=== PATIENT | male | born 1930 | race Caucasian/White ===

== ENCOUNTER 2018-01-08 16:13 | Inpatient (IN) | payer BC, OTHER ==
--- NOTE | 2018-01-08 16:24 | PDOC ---
Rapid Medical Evaluation Chief Complaint: Pain, Acute Time Seen by Provider: 01/08/18 16:20 Medical Evaluation: 01/08/18 16:21 I have performed a brief in-person evaluation of this patient. The patient presents with a chief complaint of: right testicular pain since last night. States swelling and tenderness, with difficulty urinating Pertinent physical exam findings are NAD even and unlabored breathing no abdominal tenderness I have ordered the following: urinalysis, scrotum sonogram The patient will proceed to Ed for further evaluation
--- NOTE | 2018-01-08 16:56 | PDOC ---
History of Present Illness - General Chief Complaint: Pain, Acute Stated Complaint: HERNIA Time Seen by Provider: 01/08/18 16:20 - History of Present Illness Initial Comments: 87 year old male with PMH of HTN and BPH presenting with right sided testicular pain for the past day. States that he noticed a sudden onset right testicular pain and swelling last night right before bed that made it very difficult to sleep. He describes the pain as sharp, radiating up his groin and would intermittently worsen. Denies any previous episode of the same issues, fevers, chills, nausea, vomiting, diarrhea, constipation, or other symptoms. 01/08/18 17:14 Timing/Duration: unsure Past History - Past Medical History Allergies/Adverse Reactions: Allergies Allergy/AdvReac Type Severity Reaction Status Date / Time No Known Allergies Allergy Verified 01/08/18 16:21 Home Medications: Ambulatory Orders Lisinopril [Prinivil] 20 mg PO DAILY 01/08/18 Metoprolol Succinate [Toprol Xl -] 50 mg PO DAILY 01/08/18 Terazosin HCl [Hytrin] 2 mg PO HS 01/08/18 COPD: No Disorders: Yes HTN: Yes - Suicide/Smoking/Psychosocial Hx Smoking History: Unknown if ever smoked Review of Systems - Review of Systems Constitutional: No: Chills, Diaphoresis, Fever HEENTM: No: Eye Pain, Blurred Vision, Tearing, Double Vision, Cataracts Respiratory: No: Cough, Orthopnea, SOB with Exertion Cardiac (ROS): No: Chest Pain, Edema, Lightheadedness ABD/GI: No: Diarrhea, Nausea, Vomiting : Yes: Testicular Swelling, Testicular Pain. No: Burning, Dysuria, Discharge Musculoskeletal: No: Muscle Pain, Muscle Weakness Integumentary: No: Bruising, Erythema, Flushing, Lesions Neurological: No: Headache, Numbness, Paresthesia Psychiatric: No: Anxiety, Depression Hematologic/Lymphatic: No: Anemia, Blood Clots *Physical Exam - Vital Signs Last Vital Signs Temp Pulse Resp BP Pulse Ox 99.3 F 87 18 151/78 97 01/08/18 16:22 01/08/18 16:22 01/08/18 16:22 01/08/18 16:22 01/08/18 16:22 - Physical Exam General Appearance: Yes: Nourished, Appropriately Dressed. No: Apparent Distress HEENT: positive: EOMI, EVELIA, Normal ENT Inspection, Normal Voice Neck: positive: Trachea midline, Normal Thyroid, Supple. negative: Tender, Rigid Respiratory/Chest: positive: Lungs Clear, Normal Breath Sounds. negative: Chest Tender, Respiratory Distress, Accessory Muscle Use Cardiovascular: positive: Regular Rhythm, Regular Rate Gastrointestinal/Abdominal: positive: Normal Bowel Sounds, Flat, Soft. negative : Tender Male Genitalia: positive: testicular tenderness (R test tenderness), other ( Right testicle slightly swollen with transverse lie, elevation, and absent cremasteric reflex on the right side with left sided cremasteric reflex intact. Tendernedd along right inguinal canal with bowel sounds in that area as well.) . negative: normal genitalia, discharge, testicular mass Lymphatic: negative: Adenopathy, Tenderness Musculoskeletal: positive: Normal Inspection. negative: CVA Tenderness, Decreased Range of Motion Extremity: positive: Normal Capillary Refill, Normal Inspection, Normal Range of Motion. negative: Tender Integumentary: positive: Normal Color, Dry, Warm Neurologic: positive: Fully Oriented, Alert, Normal Mood/Affect, Normal Response , Motor Strength 5/5, Other (cremasteric reflex per section) ED Treatment Course - LABORATORY CBC & Chemistry Diagram: 01/08/18 18:00 01/08/18 18:40 Medical Decision Making - Medical Decision Making 87 year old with right testicular pain and inguinal pain for the past day originalylconcerning for testicular torsion given transverse lie of testicle and absent cremasteric reflex, however, with an elevated white count to 21. 01/08/18 18:[address] with IV/ PO contrast did not demonstrate any torsion or hernia but did again see the hypervascularity in the right hemiscrotum consistent with the ultrasound. All of this is consistent with epiydmitis which is further coroborated by UA with 500+ wbcs 3+ leukesterase and WBC of 21 with left shift. Patient given levaquin 500 IVPB and signed out to TOM Howell for admission under [facility]. 01/08/18 21:54 *DC/Admit/Observation/Transfer Diagnosis at time of Disposition: Testicular pain, Acute epididymitis UTI (urinary tract infection) Qualifiers: Urinary tract infection type: site unspecified Hematuria presence: without hematuria Qualified Code(s): N39.0 - Urinary tract infection, site not specified - Discharge Dispostion Condition at time of disposition: Stable Decision to Admit order: Yes - Referrals Referrals: Jameson Arreguin MD [Primary Care Provider] - - Patient Instructions - Post Discharge Activity
[2018-01-08 18:15] LABS: BASO % 0.4 % (0-2.0); EOS % 0.1 % (0-4.5); HEMATOCRIT 41.5 % (35.4-49); HEMOGLOBIN 14.1 GM/dL (11.7-16.9); LYMPH % 5.2 % (8-40); MCH 31.2 pg (25.7-33.7); MEAN CELL VOLUME 91.9 fl (80-96); MEAN PLT VOLUME 7.1 fl (7.5-11.1); MONO % 5.1 % (3.8-10.2); NEUT % 89.2 % (42.8-82.8); PLATELET COUNT 266 K/MM3 (134-434); RBC 4.51 M/mm3 (4.00-5.60); RDW 14.4 % (11.9-15.9); WHITE BLOOD COUNT 21.4 K/mm3 (4.0-10.0)
[2018-01-08 18:38] LABS: INR 1.11 (0.83-1.09); PROTHROMBIN TIME (PATIENT) 12.5 SEC (9.7-13.0)
[2018-01-08 19:33] LABS: ALK PHOS 90 U/L (45-117); ANION GAP 9 MMOL/L (8-16); BLOOD UREA NITROGEN 10 mg/dL (7-18); CALCIUM 9.1 mg/dL (8.5-10.1); CHLORIDE 100 mmol/L (98-107); CO2 23 mmol/L (21-32); CREATININE 0.8 mg/dL (0.55-1.3); GLUCOSE,RANDOM 112 mg/dL (74-106); POTASSIUM 4.7 mmol/L (3.5-5.1); SGOT/AST 11 U/L (15-37); SGPT/ALT 13 U/L (13-61); SODIUM 133 mmol/L (136-145); TOT PROT 5.9 g/dl (6.4-8.2)
--- NOTE | 2018-01-08 19:41 | PDOC ---
Attending Attestation - HPI HPI: 01/08/18 19:44 The patient is an 87 year old male with a past medical history of benign prostatic hyperplasia and hypertension who presents to the emergency department for evaluation of a 1 day history of sudden onset right sided testicular pain with associated swelling. The patient denies previous onset of similar symptoms, fevers, chills, nausea, vomiting, diarrhea, constipation, or other symptoms - Physicial Exam PE: Vitals: Triage Vital signs reviewed General Appearance: no acute distress, well nourished well developed, Head: Atraumatic, normocephalic Neck: Supple Chest Wall: Nontender Cardiac: Regular rate and rhythm, no murmurs, no rubs, no gallops, Lungs: Clear to auscultation bilateral, good air movement bilaterally, Abdomen: Soft, nondistended, nontender to palpation Testicular exam: (+)Right testicle very tender to palpation. Pain over the inguinal ring. Extremities: Full range of motion to all extremities, no cyanosis, clubbing, or edema Skin: Warm and dry, no rashes or lesions, no petechiae Psych: normal mood, normal affect - Medical Decision Making The patient is an 87 year old male with a past medical history of benign prostatic hyperplasia and hypertension who presents to the emergency department for evaluation of a 1 day history of sudden onset right sided testicular pain with associated swelling. Plan: CT abdomen and pelvis Labs Urinalysis Ultrasound of scrotum <Albert Barillas - Last Filed: 01/08/18 19:43> - Resident Resident Name: Colin White - ED Attending Attestation I have performed the following: I have examined & evaluated the patient, The case was reviewed & discussed with the resident, I agree w/resident's findings & plan, Exceptions are as noted - Medical Decision Making 01/08/18 23:56 Patient with right testicular pain since yesterday upon arrival to the emergency department stat ultrasound ordered Pain radiated to the abdomen no evidence of torsion on examination questionable epididymitis Laboratory analysis returned with an elevated leukocytosis WBC 21 Given this elevated WBC decision made to CT abdomen and pelvis to rule out other pathology or possible small inguinal hernia Reevaluation no evidence of hernia on examination. Case discussed with urology who will admit overnight for IV antibiotics Levaquin ordered for treatment of possible infected epididymitis Limits medicine for further management. <Tay Palacios - Last Filed: 01/08/18 23:57> Attestations - Attestations Documentation prepared by Albert Barillas, acting as medical reception for Tay Palacios MD. <Albert Barillas - Last Filed: 01/08/18 19:43>
[2018-01-08 19:55] LABS: URINE APPEARANCE CLOUDY; URINE BILIRUBIN NEGATIVE (<2.0 mg/dL); URINE COLOR YELLOW; URINE GLUCOSE (UA) NEGATIVE (NEGATIVE); URINE KETONE NEGATIVE (NEGATIVE); URINE NITRITE NEGATIVE (NEGATIVE); URINE PROTEIN NEGATIVE (NEGATIVE); URINE UROBILINOGEN NEGATIVE mg/dL (0.2-1.0)
[2018-01-08 19:56] LABS: URINE LEUK ESTERASE 3+ (NEGATIVE)
[2018-01-08 19:58] LABS: PLATELET ESTIMATE ADEQUATE
[2018-01-08 20:06] LABS: INR 1.17 (0.83-1.09); PROTHROMBIN TIME (PATIENT) 13.2 SEC (9.7-13.0)
[2018-01-08 20:12] LABS: URINE BACTERIA FEW /hpf (NONE SEEN)
[2018-01-08] MEDS ORDERED: ACETAMINOPHEN 1000 MG/100 ML VIAL (NON FORMULARY) IVPB ONE (22:02)
[2018-01-08] MEDS ORDERED: SODIUM CHLORIDE 1,000 ML IV SCH (22:15)
--- NOTE | 2018-01-08 23:20 | PDOC ---
*Physical Exam - Vital Signs Last Vital Signs Temp Pulse Resp BP Pulse Ox 100.1 F H 89 18 139/70 99 01/08/18 19:56 01/08/18 19:56 01/08/18 19:56 01/08/18 19:56 01/08/18 19:56 - Physical Exam Comments: Spoke to Dr. Serrano and someone from the urology service will see her tomorrow. 01/08/18 23:16 ED Treatment Course - LABORATORY CBC & Chemistry Diagram: 01/08/18 18:00 01/08/18 18:40 - ADDITIONAL ORDERS Additional order review: Laboratory Results 01/08/18 01/08/18 01/08/18 19:27 18:40 18:40 PT with INR 13.20 H INR 1.17 H Sodium Potassium Chloride Carbon Dioxide Anion Gap BUN Creatinine Creat Clearance w eGFR Random Glucose Lactic Acid Calcium Total Bilirubin AST ALT Alkaline Phosphatase Total Protein Albumin Urine Color Yellow Urine Appearance Cloudy Urine pH 7.0 Ur Specific [place] 1.012 Urine Protein Negative Urine Glucose (UA) Negative Urine Ketones Negative Urine Blood Negative Urine Nitrite Negative Urine Bilirubin Negative Urine Urobilinogen Negative Ur Leukocyte Esterase 3+ H Urine WBC (Auto) 557 Urine RBC (Auto) 19 Urine Bacteria Few Blood Type A POSITIVE Antibody Screen Negative 01/08/18 01/08/18 01/08/18 18:40 18:40 18:00 PT with INR INR Sodium 133 L Potassium 4.7 Chloride 100 Carbon Dioxide 23 Anion Gap 9 BUN 10 Creatinine 0.8 Creat Clearance w eGFR > 60 Random Glucose 112 H Lactic Acid 1.2 Calcium 9.1 Total Bilirubin 1.0 AST 11 L ALT 13 Alkaline Phosphatase 90 Total Protein 5.9 L Albumin 3.0 L Urine Color Urine Appearance Urine pH Ur Specific [place] Urine Protein Urine Glucose (UA) Urine Ketones Urine Blood Urine Nitrite Urine Bilirubin Urine Urobilinogen Ur Leukocyte Esterase Urine WBC (Auto) Urine RBC (Auto) Urine Bacteria Blood Type Cancelled Antibody Screen Cancelled 01/08/18 01/08/18 18:00 18:00 PT with INR 12.50 INR 1.11 H Sodium Cancelled Potassium Cancelled Chloride Cancelled Carbon Dioxide Cancelled Anion Gap Cancelled BUN Cancelled Creatinine Cancelled Creat Clearance w eGFR Cancelled Random Glucose Cancelled Lactic Acid Calcium Cancelled Total Bilirubin Cancelled AST Cancelled ALT Cancelled Alkaline Phosphatase Cancelled Total Protein Cancelled Albumin Cancelled Urine Color Urine Appearance Urine pH Ur Specific [place] Urine Protein Urine Glucose (UA) Urine Ketones Urine Blood Urine Nitrite Urine Bilirubin Urine Urobilinogen Ur Leukocyte Esterase Urine WBC (Auto) Urine RBC (Auto) Urine Bacteria Blood Type Antibody Screen 01/08/18 18:00 RBC 4.51 MCV 91.9 MCHC 34.0 RDW 14.4 MPV 7.1 L Neutrophils % 89.2 H Lymphocytes % 5.2 L Monocytes % 5.1 Eosinophils % 0.1 Basophils % 0.4 - RADIOLOGY Radiology Studies Ordered: Category Date Time Status ABDOMEN & PELVIS CT WITH CONTR [CT] Stat CT Scan 01/08/18 19:06 Completed - Medications Given in the ED: ED Medications Discontinued Medications Generic Name Dose Route Start Last Admin Trade Name Freq PRN Reason Stop Dose Admin Levofloxacin 500 mg in 100 mls @ 100 mls/hr 01/08/18 20:15 01/08/18 22:02 Levaquin 500 Mg Premixed Ivpb - IVPB 01/08/18 21:14 100 mls/hr ONCE ONE Administration Protocol *DC/Admit/Observation/Transfer Diagnosis at time of Disposition: Testicular pain, Acute epididymitis UTI (urinary tract infection) Qualifiers: Urinary tract infection type: site unspecified Hematuria presence: without hematuria Qualified Code(s): N39.0 - Urinary tract infection, site not specified - Discharge Dispostion Condition at time of disposition: Stable - Referrals - Patient Instructions - Post Discharge Activity
[2018-01-08] MEDS ORDERED: ACETAMINOPHEN INJECTION 100 ML IVPB ONE (23:22)
--- NOTE | 2018-01-09 04:28 | HP ---
CHIEF COMPLAINT: Right Testicular Pain and Swelling PCP: Dr. Arreguin HISTORY OF PRESENT ILLNESS: This is a 87 y/o man with a PMHx of HTN, BPH. Who presents to the ED with right testicular pain and swelling since Friday afternoon. Patient reports while sitting he felt a sharp pain and noted swelling to his testicle. Patient deneis fever, chills, cough, SOB, CP, AP, N/V/D, constipation, melena, hematuria, dysuria. ER course was notable for: (1) T Max 100.1 (2) WBC 12.1 (3) Testicular US- no testicular torsion, right scrotal mass. Bilateral hydrocele (4) CTAP- cholelithiais, prostatic enlargement, hypervascularity and hydrocele within the right hemiscrotum, no acute pathology within the abdomen or pelvis Recent Travel: None PAST MEDICAL HISTORY: HTN BPH PAST SURGICAL HISTORY: Social History: Smoking: Former Alcohol: Wine, occasionally Drugs: Denies current use Lives with son, independent Family History: Non-contributory Allergies No Known Allergies Allergy (Verified 01/08/18 16:21) HOME MEDICATIONS: Home Medications Medication Instructions Recorded Lisinopril [Prinivil] 20 mg PO DAILY 01/08/18 Metoprolol Succinate [Toprol Xl -] 50 mg PO DAILY 01/08/18 Terazosin HCl [Hytrin] 2 mg PO HS 01/08/18 REVIEW OF SYSTEMS CONSTITUTIONAL: Absent: fever, chills, diaphoresis, generalized weakness, malaise, loss of appetite, weight change HEENT: Absent: rhinorrhea, nasal congestion, throat pain, throat swelling, difficulty swallowing, mouth swelling, ear pain, eye pain, visual changes CARDIOVASCULAR: Absent: chest pain, syncope, palpitations, irregular heart rate, lightheadedness , peripheral edema RESPIRATORY: Absent: cough, shortness of breath, dyspnea with exertion, orthopnea, wheezing, stridor, hemoptysis GASTROINTESTINAL: Absent: abdominal pain, abdominal distension, nausea, vomiting, diarrhea, constipation, melena, hematochezia GENITOURINARY: R-testicular pain. swelling Absent: dysuria, frequency, urgency, hesitancy, hematuria, flank pain, genital pain MUSCULOSKELETAL: Absent: myalgia, arthralgia, joint swelling, back pain, neck pain SKIN: redness to right scrotum Absent: rash, itching, pallor HEMATOLOGIC/IMMUNOLOGIC: Absent: easy bleeding, easy bruising, lymphadenopathy, frequent infections ENDOCRINE: Absent: unexplained weight gain, unexplained weight loss, heat intolerance, cold intolerance NEUROLOGIC: Absent: headache, focal weakness or paresthesias, dizziness, unsteady gait, seizure, mental status changes, bladder or bowel incontinence PSYCHIATRIC: Absent: anxiety, depression, suicidal or homicidal ideation, hallucinations. PHYSICAL EXAMINATION Vital Signs - 24 hr 01/08/18 01/08/18 01/09/18 16:22 19:56 03:41 Temperature 99.3 F 100.1 F H 97.9 F Pulse Rate 87 Pulse Rate [ 89 70 Apical] Respiratory 18 18 16 Rate Blood Pressure 151/78 Blood Pressure 139/70 113/89 [Left Arm] O2 Sat by Pulse 97 99 98 Oximetry (%) GENERAL: Awake, alert, and fully oriented, in no acute distress. HEAD: Normal with no signs of trauma. EYES: Pupils equal, round and reactive to light, extraocular movements intact, sclera anicteric, conjunctiva clear. No lid lag. EARS, NOSE, THROAT: Ears normal, nares patent, oropharynx clear without exudates. Moist mucous membranes. NECK: Normal range of motion, supple without lymphadenopathy, JVD, or masses. LUNGS: Breath sounds equal, clear to auscultation bilaterally. No wheezes, and no crackles. No accessory muscle use. HEART: Regular rate and rhythm, normal S1 and S2 without murmur, rub or gallop. ABDOMEN: Soft, nontender, not distended, normoactive bowel sounds, no guarding, no rebound, no masses. No hepatomegaly or splenomegaly. GENITOURINARY: +erythema, swelling, mass to R- scrotum MUSCULOSKELETAL: Normal range of motion at all joints. No bony deformities or tenderness. No CVA tenderness. UPPER EXTREMITIES: 2+ pulses, warm, well-perfused. No cyanosis. No clubbing. No peripheral edema. LOWER EXTREMITIES: 2+ pulses, warm, well-perfused. No calf tenderness. No peripheral edema. NEUROLOGICAL: Cranial nerves II-XII intact. Normal speech. Gait not observed. PSYCHIATRIC: Cooperative. Good eye contact. Appropriate mood and affect. SKIN: Warm, dry, normal turgor, no rashes or lesions noted, normal capillary refill. Laboratory Results - last 24 hr 01/08/18 01/08/1818 18:00 18:00 18:00 WBC 21.4 H RBC 4.51 Hgb 14.1 Hct 41.5 MCV 91.9 MCH 31.2 MCHC 34.0 RDW 14.4 Plt Count 266 MPV 7.1 L Absolute Neuts (auto) 19.1 H Total Counted 100 Neutrophils % 89.2 H Neutrophils % (Manual) 90.0 H Lymphocytes % 5.2 L Lymphocytes % (Manual) 5.0 L Monocytes % 5.1 Monocytes % (Manual) 5 Eosinophils % 0.1 Basophils % 0.4 Nucleated RBC % 0 Platelet Estimate Adequate Platelet Comment Large platelets PT with INR 12.50 INR 1.11 H Sodium Cancelled Potassium Cancelled Chloride Cancelled Carbon Dioxide Cancelled Anion Gap Cancelled BUN Cancelled Creatinine Cancelled Creat Clearance w eGFR Cancelled Random Glucose Cancelled Lactic Acid Calcium Cancelled Total Bilirubin Cancelled AST Cancelled ALT Cancelled Alkaline Phosphatase Cancelled Total Protein Cancelled Albumin Cancelled Urine Color Urine Appearance Urine pH Ur Specific [place] Urine Protein Urine Glucose (UA) Urine Ketones Urine Blood Urine Nitrite Urine Bilirubin Urine Urobilinogen Ur Leukocyte Esterase Urine WBC (Auto) Urine RBC (Auto) Urine Bacteria Blood Type Antibody Screen 01/08/18 01/08/18 01/08/18 18:00 18:40 18:40 WBC RBC Hgb Hct MCV MCH MCHC RDW Plt Count MPV Absolute Neuts (auto) Total Counted Neutrophils % Neutrophils % (Manual) Lymphocytes % Lymphocytes % (Manual) Monocytes % Monocytes % (Manual) Eosinophils % Basophils % Nucleated RBC % Platelet Estimate Platelet Comment PT with INR INR Sodium 133 L Potassium 4.7 Chloride 100 Carbon Dioxide 23 Anion Gap 9 BUN 10 Creatinine 0.8 Creat Clearance w eGFR > 60 Random Glucose 112 H Lactic Acid 1.2 Calcium 9.1 Total Bilirubin 1.0 AST 11 L ALT 13 Alkaline Phosphatase 90 Total Protein 5.9 L Albumin 3.0 L Urine Color Urine Appearance Urine pH Ur Specific [place] Urine Protein Urine Glucose (UA) Urine Ketones Urine Blood Urine Nitrite Urine Bilirubin Urine Urobilinogen Ur Leukocyte Esterase Urine WBC (Auto) Urine RBC (Auto) Urine Bacteria Blood Type Cancelled Antibody Screen Cancelled 01/08/18 01/08/18 01/08/18 18:40 18:40 19:27 WBC RBC Hgb Hct MCV MCH MCHC RDW Plt Count MPV Absolute Neuts (auto) Total Counted Neutrophils % Neutrophils % (Manual) Lymphocytes % Lymphocytes % (Manual) Monocytes % Monocytes % (Manual) Eosinophils % Basophils % Nucleated RBC % Platelet Estimate Platelet Comment PT with INR 13.20 H INR 1.17 H Sodium Potassium Chloride Carbon Dioxide Anion Gap BUN Creatinine Creat Clearance w eGFR Random Glucose Lactic Acid Calcium Total Bilirubin AST ALT Alkaline Phosphatase Total Protein Albumin Urine Color Yellow Urine Appearance Cloudy Urine pH 7.0 Ur Specific [place] 1.012 Urine Protein Negative Urine Glucose (UA) Negative Urine Ketones Negative Urine Blood Negative Urine Nitrite Negative Urine Bilirubin Negative Urine Urobilinogen Negative Ur Leukocyte Esterase 3+ H Urine WBC (Auto) 557 Urine RBC (Auto) 19 Urine Bacteria Few Blood Type A POSITIVE Antibody Screen Negative ASSESSMENT/PLAN: 87 y/o man PMHx of BPH, HTN. Placed on Observation for Acute Epididymitis, R- Testicular Pain, UTI for further evaluation of their emergent condition. FEN: NS@75ml/hr Replete lytes prn NPO DVT ppx OOB SCDs Heparin SQ Code Status: Full Code Dispo: Observation Problem List - Problem (1) Acute epididymitis Assessment/Plan: - Testicular US- scrotal mass heterogenous ad hypervascular - CTAP- cholelithiasis, prostatic enlargement, hypervascularity and hydrocele within the right hemiscrotum, no acute pathology within the abdomen or pelvis - Urine culture-pending - GC Culture-pending - Blood Culture-pending - WBC 21.4 - T Max 100.1 - + UTI - Levaquin given in ED, continue - Consult for Urology - IVF - Tylenol IV prn - Monitor vitals Code(s): N45.1 - EPIDIDYMITIS (2) Testicular pain Assessment/Plan: - r/o Testicular Torsion vs Epididymitis - Testicular US- no evidence of testicular torsion. scrotal mass medial to the right testicle ?etiology. the mass is heterogenous and hypervascular could be related to the epididymis - Appreciate Urology consult - Appreciate Surgical consult secondary to scrotal mass - Continue IVF fluids - Tylenol IV prn pain - Scrotal support - Repeat CBC, BMP - Monitor vitals Code(s): N50.819 - TESTICULAR PAIN, UNSPECIFIED (3) UTI (urinary tract infection) Assessment/Plan: - Likely secondary to epididymitis - UA- +3 leukocyte esterase, WBC 357 - Urine Culture-pending - Levaquin given in ED will continue - Monitor CBC - Monitor vitals Code(s): N39.0 - URINARY TRACT INFECTION, SITE NOT SPECIFIED Qualifiers: Urinary tract infection type: site unspecified Hematuria presence: without hematuria Qualified Code(s): N39.0 - Urinary tract infection, site not specified (4) BPH (benign prostatic hyperplasia) Assessment/Plan: - stable - Continue Hytrin Code(s): N40.0 - BENIGN PROSTATIC HYPERPLASIA WITHOUT LOWER URINRY TRACT SYMP (5) HTN (hypertension) Assessment/Plan: - stable - Monitor BP - Continue Lisinopril, Metoprolol with parameters - Monitor renal function Code(s): I10 - ESSENTIAL (PRIMARY) HYPERTENSION Visit type - Emergency Visit Emergency Visit: Yes ED Registration Date: 01/08/18 Care time: The patient presented to the Emergency Department on the above date and was hospitalized for further evaluation of their emergent condition. - New Patient This patient is new to me today: Yes Date on this admission: 01/09/18 - Critical Care Critical Care patient: No Hospitalist Screening - Colonoscopy Questionnaire Colonoscopy Questionnaire: Colonoscopy Questionnaire - Patient: 50 - 75 years old and never had a screening colonoscopy: No History of colon or rectal polyps, or CA: No History of IBD, Crohn's disease or UC: No History of abdominal radiation therapy as a child: No - Relative: 1 with colon or rectal CA, or polyps at age 60 or younger: No Colon or rectal CA diagnosed at age 45 or younger: No Multiple relatives with colon or rectal CA: No - Outcome: Screening Result: Negative Screen
[2018-01-09] MEDS: SODIUM CHLORIDE 1,000 ML IV SCH ×2 (04:50→17:07)
[2018-01-09 07:15] LABS: BASO % 0.1 % (0-2.0); EOS % 0.2 % (0-4.5); HEMATOCRIT 36.3 % (35.4-49); HEMOGLOBIN 12.4 GM/dL (11.7-16.9); LYMPH % 10.4 % (8-40); MCH 31.1 pg (25.7-33.7); MCHC 34.1 g/dl (32.0-35.9); MEAN PLT VOLUME 7.3 fl (7.5-11.1); MONO % 5.5 % (3.8-10.2); NEUT % 83.8 % (42.8-82.8); PLATELET COUNT 214 K/MM3 (134-434); RBC 3.99 M/mm3 (4.00-5.60); RDW 14.3 % (11.9-15.9)
[2018-01-09 07:48] LABS: ANION GAP 9 MMOL/L (8-16); BLOOD UREA NITROGEN 9 mg/dL (7-18); CALCIUM 8.3 mg/dL (8.5-10.1); CHLORIDE 101 mmol/L (98-107); CO2 24 mmol/L (21-32); CREATININE 0.7 mg/dL (0.55-1.3); GLUCOSE,RANDOM 90 mg/dL (74-106); POTASSIUM 4.1 mmol/L (3.5-5.1); SODIUM 133 mmol/L (136-145)
--- NOTE | 2018-01-09 09:40 | CON.GU ---
Consult Consult Specialty:: Referred by:: ED Reason for Consultation:: testicular swelling - History of Present Illness Chief Complaint: testicular swelling History of Present Illness: 87 year old male with acute and painful right testicular swelling. No prior history. CT and US consistent with epidydimits and hydrocele. He is currently feeling better without pain. No urinary complaints. Elevated WBC noted. - History Source History Provided By: Patient Limitations to Obtaining History: No Limitations - Past Medical History Renal/: No: BPH - Smoking History Smoking history: Unknown if ever smoked Home Medications - Allergies Allergies/Adverse Reactions: Allergies Allergy/AdvReac Type Severity Reaction Status Date / Time No Known Allergies Allergy Verified 01/08/18 16:21 - Home Medications Home Medications: Ambulatory Orders Lisinopril [Prinivil] 20 mg PO DAILY 01/08/18 Metoprolol Succinate [Toprol Xl -] 50 mg PO DAILY 01/08/18 Terazosin HCl [Hytrin] 2 mg PO HS 01/08/18 Review of Systems - Review of Systems Constitutional: denies: Fever Genitourinary: reports: Testicular Mass, Testicular Pain, Testicular Swelling Physical Exam- Vital Signs: Vital Signs Temperature 97.8 F 01/09/18 07:07 Pulse Rate 74 01/09/18 07:07 Respiratory Rate 18 01/09/18 07:07 Blood Pressure 115/56 01/09/18 07:07 O2 Sat by Pulse Oximetry (%) 97 01/09/18 07:07 Constitutional: Yes: Well Nourished, No Distress, Calm Cardiovascular: Yes: WNL, Regular Rate and Rhythm Respiratory: Yes: WNL, Regular, CTA Bilaterally Renal/: No: Bladder Distention, CVA Tenderness - Left, CVA Tenderness - Right , [place] Present Testicles: Yes: Other (non tender. no masses appreciated. small bilateral hydroceles.) Scrotum: Yes: Hydrocele Labs: CBC, BMP 01/09/18 06:30 01/09/18 06:30 Imaging - Results Cat Scan: Report Reviewed Ultrasound: Report Reviewed Problem List - Problems (1) Acute epididymitis Assessment/Plan: no surgical intervention indicated. antibiotics,. scrotal elevation and ice packs to scrotum as needed. Code(s): N45.1 - EPIDIDYMITIS (2) Testicular pain Code(s): N50.819 - TESTICULAR PAIN, UNSPECIFIED
[2018-01-09] MEDS: LISINOPRIL 20 MG TABLET (FP) PO SCH (10:13)
--- NOTE | 2018-01-09 10:52 | PN ---
Progress Note, Physician Chief Complaint: Pt lying in stretcher in no acute distress. reports feeling better. c/o pain/ swelling of r testicle. denies chest pain, sob, n/v/d - Current Medication List Current Medications: Active Medications Sodium Chloride (Normal Saline -) 1,000 mls @ 75 mls/hr IV ASDIR COUNT INCLUDES THE [facility] Last Admin: 01/09/18 04:50 Dose: 75 mls/hr Levofloxacin (Levaquin 500 Mg Premixed Ivpb -) 500 mg in 100 mls @ 100 mls/hr IVPB DAILY COUNT INCLUDES [facility]; Protocol Last Admin: 01/09/18 10:13 Dose: 100 mls/hr Lisinopril (Prinivil) 20 mg PO DAILY COUNT INCLUDES [facility] Last Admin: 01/09/18 10:13 Dose: 20 mg Metoprolol Succinate (Toprol Xl -) 50 mg PO DAILY COUNT INCLUDES [facility] Last Admin: 01/09/18 10:13 Dose: 50 mg Terazosin HCl (Hytrin -) 2 mg PO HS COUNT INCLUDES THE [facility] - Objective Vital Signs: Vital Signs Temperature 97.8 F 01/09/18 07:07 Pulse Rate 74 01/09/18 07:07 Respiratory Rate 18 01/09/18 07:07 Blood Pressure 115/56 01/09/18 07:07 O2 Sat by Pulse Oximetry (%) 97 01/09/18 07:07 Constitutional: Yes: Well Nourished, No Distress, Calm Cardiovascular: Yes: WNL, Regular Rate and Rhythm Respiratory: Yes: WNL, Regular, CTA Bilaterally. No: Accessory Muscle Use, Rhonchi, SOB, Tachypnea, Wheezes Gastrointestinal: Yes: WNL, Normal Bowel Sounds, Soft. No: Distention, Tenderness Genitourinary: Yes: Scrotal Edema (right, erythema/tender) Musculoskeletal: Yes: WNL Neurological: Yes: WNL, Alert, Oriented Psychiatric: Yes: WNL, Alert, Oriented Labs: CBC, BMP 01/09/18 06:30 01/09/18 06:30 INR, PTT INR 1.17 (0.83-1.09) H 01/08/18 18:40 Problem List - Problems (1) Acute epididymitis Assessment/Plan: Abd CT/scrotal US suggestive of epididymitis/hydrocele testicular torsion ruled out +fever, [id number], right scrotal/testicular swelling/erythema/tenderness levofloxacin iv day 2 GC culture pending, blood cultures ordered scrotal support/elevate/ice pack urology following Code(s): N45.1 - EPIDIDYMITIS (2) UTI (urinary tract infection) Assessment/Plan: pt c/o mild burning/discomfort w/ urination UA+, UC pending levaquin iv await culture Code(s): N39.0 - URINARY TRACT INFECTION, SITE NOT SPECIFIED Qualifiers: Urinary tract infection type: site unspecified Hematuria presence: without hematuria Qualified Code(s): N39.0 - Urinary tract infection, site not specified (3) HTN (hypertension) Assessment/Plan: controlled continue home regimen Code(s): I10 - ESSENTIAL (PRIMARY) HYPERTENSION Qualifiers: Hypertension type: essential hypertension Qualified Code(s): I10 - Essential (primary) hypertension (4) Leukocytosis Assessment/Plan: as above improving Code(s): D72.829 - ELEVATED WHITE BLOOD CELL COUNT, UNSPECIFIED
[2018-01-09 16:13] VITALS: BMI 23.8
[2018-01-09] MEDS ORDERED: PT OWN MED DRAWER 7, Y5N ONE (21:22)
[2018-01-09] MEDS ORDERED: ONDANSETRON 4 MG TABLET PO PRN (22:51)
[2018-01-09] MEDS: TERAZOSIN HCL 1 MG CAPSULE PO SCH (22:58)
[2018-01-09] MEDS: MAG HYDROX/AL HYDROX/SIMETH 30 ML UNIT-DOSE CUP PO PRN (22:59)
[2018-01-10 08:07] LABS: BASO % 0.3 % (0-2.0); EOS % 0.5 % (0-4.5); HEMOGLOBIN 11.7 GM/dL (11.7-16.9); LYMPH % 9.4 % (8-40); MCH 30.5 pg (25.7-33.7); MCHC 33.4 g/dl (32.0-35.9); MEAN CELL VOLUME 91.3 fl (80-96); MEAN PLT VOLUME 7.6 fl (7.5-11.1); MONO % 6.4 % (3.8-10.2); NEUT % 83.4 % (42.8-82.8); PLATELET COUNT 228 K/MM3 (134-434); RBC 3.83 M/mm3 (4.00-5.60); RDW 14.4 % (11.9-15.9); WHITE BLOOD COUNT 16.1 K/mm3 (4.0-10.0)
[2018-01-10 08:48] LABS: ALBUMIN 2.3 g/dl (3.4-5.0); ALK PHOS 79 U/L (45-117); ANION GAP 9 MMOL/L (8-16); BLOOD UREA NITROGEN 10 mg/dL (7-18); CALCIUM 8.5 mg/dL (8.5-10.1); CHLORIDE 100 mmol/L (98-107); CO2 25 mmol/L (21-32); CREATININE 0.6 mg/dL (0.55-1.3); GLUCOSE,RANDOM 88 mg/dL (74-106); SGOT/AST 12 U/L (15-37); SGPT/ALT 12 U/L (13-61); SODIUM 134 mmol/L (136-145); TOT PROT 4.8 g/dl (6.4-8.2)
[2018-01-10] MEDS: LISINOPRIL 20 MG TABLET (FP) PO SCH (10:34)
--- NOTE | 2018-01-10 12:59 | PN ---
Progress Note, Physician Chief Complaint: Rt sided testicular pain - Current Medication List Current Medications: Active Medications Al Hydroxide/Mg Hydroxide (Mylanta Oral Suspension -) 30 ml PO Q6H PRN PRN Reason: INDIGESTION Last Admin: 01/09/18 22:59 Dose: 30 ml Sodium Chloride (Normal Saline -) 1,000 mls @ 75 mls/hr IV ASDIR [facility] Last Admin: 01/09/18 17:07 Dose: 75 mls/hr Levofloxacin (Levaquin 500 Mg Premixed Ivpb -) 500 mg in 100 mls @ 100 mls/hr IVPB DAILY [facility]; Protocol Last Admin: 01/10/18 10:35 Dose: 100 mls/hr Lisinopril (Prinivil) 20 mg PO DAILY [facility] Last Admin: 01/10/18 10:34 Dose: 20 mg Metoprolol Succinate (Toprol Xl -) 50 mg PO DAILY [facility] Last Admin: 01/10/18 10:34 Dose: 50 mg Ondansetron HCl (Zofran -) 4 mg PO Q6H PRN PRN Reason: NAUSEA AND/OR VOMITING Terazosin HCl (Hytrin -) 2 mg PO HS [facility] Last Admin: 01/09/18 22:58 Dose: 2 mg - Objective Vital Signs: Vital Signs Temperature 98.9 F 01/10/18 10:00 Pulse Rate 74 01/10/18 10:00 Respiratory Rate 18 01/10/18 10:00 Blood Pressure 126/61 01/10/18 10:00 O2 Sat by Pulse Oximetry (%) 96 01/10/18 09:00 Constitutional: Yes: Well Nourished, No Distress, Calm Cardiovascular: Yes: WNL, Regular Rate and Rhythm Respiratory: Yes: WNL, Regular, CTA Bilaterally. No: Accessory Muscle Use, Rhonchi, SOB, Tachypnea, Wheezes Gastrointestinal: Yes: WNL, Normal Bowel Sounds, Soft. No: Distention, Tenderness Genitourinary: Yes: Scrotal Edema (right, erythema/tender) Musculoskeletal: Yes: WNL Neurological: Yes: WNL, Alert, Oriented Psychiatric: Yes: WNL, Alert, Oriented Labs: CBC, BMP 01/10/18 06:00 01/10/18 06:00 INR, PTT INR 1.17 (0.83-1.09) H 01/08/18 18:40 Problem List - Problems (1) Acute epididymitis Assessment/Plan: Improving on current abx F/U cultures Code(s): N45.1 - EPIDIDYMITIS (2) BPH (benign prostatic hyperplasia) Assessment/Plan: cont Home meds Code(s): N40.0 - BENIGN PROSTATIC HYPERPLASIA WITHOUT LOWER URINRY TRACT SYMP (3) HTN (hypertension) Assessment/Plan: well controlled cont all home meds Code(s): I10 - ESSENTIAL (PRIMARY) HYPERTENSION Qualifiers: Hypertension type: essential hypertension Qualified Code(s): I10 - Essential (primary) hypertension (4) UTI (urinary tract infection) Assessment/Plan: Cont abx Code(s): N39.0 - URINARY TRACT INFECTION, SITE NOT SPECIFIED Qualifiers: Urinary tract infection type: site unspecified Hematuria presence: without hematuria Qualified Code(s): N39.0 - Urinary tract infection, site not specified
[2018-01-10] MEDS: SODIUM CHLORIDE 1,000 ML IV SCH (13:25)
[2018-01-10] MEDS: MAG HYDROX/AL HYDROX/SIMETH 30 ML UNIT-DOSE CUP PO PRN (15:10)
[2018-01-10] MEDS ORDERED: PT OWN MED DRAWER 7, Y5N ONE (21:05)
[2018-01-10] MEDS: TERAZOSIN HCL 1 MG CAPSULE PO SCH (21:18)
[2018-01-11 07:53] LABS: BASO % 0.2 % (0-2.0); EOS % 2.4 % (0-4.5); HEMATOCRIT 34.2 % (35.4-49); HEMOGLOBIN 11.8 GM/dL (11.7-16.9); LYMPH % 13.3 % (8-40); MCH 31.5 pg (25.7-33.7); MCHC 34.6 g/dl (32.0-35.9); MEAN CELL VOLUME 91.1 fl (80-96); MEAN PLT VOLUME 7.8 fl (7.5-11.1); MONO % 8.1 % (3.8-10.2); PLATELET COUNT 227 K/MM3 (134-434); RBC 3.76 M/mm3 (4.00-5.60); RDW 13.9 % (11.9-15.9); WHITE BLOOD COUNT 10.8 K/mm3 (4.0-10.0)
[2018-01-11 08:49] LABS: ALBUMIN 2.1 g/dl (3.4-5.0); ALK PHOS 74 U/L (45-117); ANION GAP 9 MMOL/L (8-16); BILIRUBIN,TOTAL 0.6 mg/dL (0.2-1); BLOOD UREA NITROGEN 7 mg/dL (7-18); CALCIUM 7.7 mg/dL (8.5-10.1); CHLORIDE 103 mmol/L (98-107); CO2 22 mmol/L (21-32); CREATININE 0.5 mg/dL (0.55-1.3); GLUCOSE,RANDOM 79 mg/dL (74-106); POTASSIUM 3.8 mmol/L (3.5-5.1); SGOT/AST 18 U/L (15-37); SGPT/ALT 24 U/L (13-61); SODIUM 134 mmol/L (136-145); TOT PROT 4.5 g/dl (6.4-8.2)
[2018-01-11] MEDS: LISINOPRIL 20 MG TABLET (FP) PO SCH (10:23)
--- NOTE | 2018-01-11 14:12 | PN ---
Progress Note, Physician Chief Complaint: Rt sided testicular pain - Current Medication List Current Medications: Active Medications Al Hydroxide/Mg Hydroxide (Mylanta Oral Suspension -) 30 ml PO Q6H PRN PRN Reason: INDIGESTION Last Admin: 01/10/18 15:10 Dose: 30 ml Sodium Chloride (Normal Saline -) 1,000 mls @ 75 mls/hr IV ASDIR [facility] Last Admin: 01/10/18 13:25 Dose: 75 mls/hr Levofloxacin (Levaquin 500 Mg Premixed Ivpb -) 500 mg in 100 mls @ 100 mls/hr IVPB DAILY [facility]; Protocol Last Admin: 01/11/18 10:23 Dose: 100 mls/hr Lisinopril (Prinivil) 20 mg PO DAILY [facility] Last Admin: 01/11/18 10:23 Dose: 20 mg Metoprolol Succinate (Toprol Xl -) 50 mg PO DAILY [facility] Last Admin: 01/11/18 10:23 Dose: 50 mg Ondansetron HCl (Zofran -) 4 mg PO Q6H PRN PRN Reason: NAUSEA AND/OR VOMITING Terazosin HCl (Hytrin -) 2 mg PO HS [facility] Last Admin: 01/10/18 21:18 Dose: 2 mg - Objective Vital Signs: Vital Signs Temperature 98.4 F 01/11/18 09:00 Pulse Rate 72 01/11/18 09:00 Respiratory Rate 18 01/11/18 09:00 Blood Pressure 111/55 L 01/11/18 09:00 O2 Sat by Pulse Oximetry (%) 96 01/11/18 09:00 Constitutional: Yes: Well Nourished, No Distress, Calm Cardiovascular: Yes: WNL, Regular Rate and Rhythm Respiratory: Yes: WNL, Regular, CTA Bilaterally. No: Accessory Muscle Use, Rhonchi, SOB, Tachypnea, Wheezes Gastrointestinal: Yes: WNL, Normal Bowel Sounds, Soft. No: Distention, Tenderness Genitourinary: Yes: Scrotal Edema (right, erythema/tender) Musculoskeletal: Yes: WNL Neurological: Yes: WNL, Alert, Oriented Psychiatric: Yes: WNL, Alert, Oriented Labs: CBC, BMP 01/11/18 06:30 01/11/18 06:30 INR, PTT INR 1.17 (0.83-1.09) H 01/08/18 18:40 Microbiology 01/08/18 19:27 Urine Culture - Final Urine - Urine Clean Catch Klebsiella Pneumoniae 01/09/18 18:00 Blood Culture - Preliminary Blood - Peripheral Venous NO GROWTH OBTAINED AFTER 24 HOURS, INCUBATION TO CONTINUE FOR 4 DAYS. 01/09/18 16:30 Blood Culture - Preliminary Blood - Peripheral Venous NO GROWTH OBTAINED AFTER 24 HOURS, INCUBATION TO CONTINUE FOR 4 DAYS. Problem List - Problems (1) Acute epididymitis Assessment/Plan: Improving on current abx Blood Culture -ve Urine Grew KP pansensitive on Levofloxavcin Code(s): N45.1 - EPIDIDYMITIS (2) BPH (benign prostatic hyperplasia) Assessment/Plan: cont Home meds Code(s): N40.0 - BENIGN PROSTATIC HYPERPLASIA WITHOUT LOWER URINRY TRACT SYMP (3) HTN (hypertension) Assessment/Plan: well controlled cont all home meds Code(s): I10 - ESSENTIAL (PRIMARY) HYPERTENSION Qualifiers: Hypertension type: essential hypertension Qualified Code(s): I10 - Essential (primary) hypertension (4) UTI (urinary tract infection) Assessment/Plan: Grew KP cont Levofloxacin Code(s): N39.0 - URINARY TRACT INFECTION, SITE NOT SPECIFIED Qualifiers: Urinary tract infection type: site unspecified Hematuria presence: without hematuria Qualified Code(s): N39.0 - Urinary tract infection, site not specified
[2018-01-11] MEDS: TERAZOSIN HCL 1 MG CAPSULE PO SCH (22:35)
[2018-01-12 07:22] LABS: BASO % 0.6 % (0-2.0); EOS % 2.5 % (0-4.5); HEMATOCRIT 35.9 % (35.4-49); HEMOGLOBIN 12.3 GM/dL (11.7-16.9); LYMPH % 18.6 % (8-40); MCH 30.8 pg (25.7-33.7); MCHC 34.3 g/dl (32.0-35.9); MEAN PLT VOLUME 7.4 fl (7.5-11.1); MONO % 9.4 % (3.8-10.2); NEUT % 68.9 % (42.8-82.8); PLATELET COUNT 266 K/MM3 (134-434); RBC 3.99 M/mm3 (4.00-5.60); RDW 13.7 % (11.9-15.9)
[2018-01-12 08:14] LABS: ANION GAP 8 MMOL/L (8-16); BLOOD UREA NITROGEN 6 mg/dL (7-18); CALCIUM 7.8 mg/dL (8.5-10.1); CHLORIDE 99 mmol/L (98-107); CO2 23 mmol/L (21-32); CREATININE 0.5 mg/dL (0.55-1.3); GLUCOSE,RANDOM 77 mg/dL (74-106); POTASSIUM 3.9 mmol/L (3.5-5.1); SODIUM 130 mmol/L (136-145)
[2018-01-12] MEDS: LISINOPRIL 20 MG TABLET (FP) PO SCH (10:07)
--- NOTE | 2018-01-12 13:25 | DS ---
Physical Examination Vital Signs: Vital Signs Temperature 98.7 F 01/12/18 09:00 Pulse Rate 69 01/12/18 09:00 Respiratory Rate 18 01/12/18 09:00 Blood Pressure 145/81 01/12/18 09:00 O2 Sat by Pulse Oximetry (%) 97 01/12/18 09:00 Constitutional: Yes: Well Nourished, No Distress Cardiovascular: Yes: WNL, Regular Rate and Rhythm Respiratory: Yes: WNL, Regular, CTA Bilaterally Gastrointestinal: Yes: WNL, Normal Bowel Sounds, Soft Renal/: Yes: Scrotal Edema (improved) Neurological: Yes: WNL, Alert, Oriented Psychiatric: Yes: WNL, Alert, Oriented Labs: CBC, BMP 01/12/18 06:15 01/12/18 06:15 Discharge Summary Reason For Visit: URINARY TRACT INFECTION,ACUTE EPIDIDYMITIS, Current Active Problems Acute epididymitis (Acute) BPH (benign prostatic hyperplasia) (Acute) HTN (hypertension) (Acute) Leukocytosis (Acute) Testicular pain (Acute) UTI (urinary tract infection) (Acute) Hospital Course: is a 87 year old male who was admitted w/ acute epididymitis/uti. Gonorrhea/Chlamydia negative. Pt received 4 days of iv levofloxacin. wbc improved and at baseline today. afebrile for 72 hours. vitals stable. Transitioned to po levaquin for 6 more days to finish 10 day course. Otherwise, pt medically stable for discharge home. f/u as directed. 32 minutes spent in discharge planning Condition: Good - Instructions Diet, Activity, Other Instructions: continue diet, ambulation as tolerated Antibx once a day x 6 more days f/u as directed Referrals: Jameson Arreguin MD [Primary Care Provider] - 1 Week Disposition: VNS/HOME HEALTH CARE - Home Medications Comprehensive Discharge Medication List: Ambulatory Orders Lisinopril [Prinivil] 20 mg PO DAILY 01/08/18 Metoprolol Succinate [Toprol XL -] 50 mg PO DAILY 01/08/18 Terazosin HCl [Hytrin -] 2 mg PO HS 01/08/18 Levofloxacin [Levaquin] 500 mg PO DAILY 6 Days #6 tablet 01/12/18
[2018-01-12 14:41] VITALS: BP 144/74; PULSE 67; TEMP 99
== END 2018-01-12 17:08 | disposition home health service (06) | DRG 728 ==
LOC: JER 16:13 → JERBED 22:02 → J7W 01-09 15:49 → OBSVTOIN 01-09 17:47
PROVIDERS: ADMIT Internal Medicine; ATTEND Internal Medicine
DX: N45.1 Epididymitis (principal); N39.0 Urinary tract infection, site not specified; I10 Essential (primary) hypertension; N40.0 Benign prostatic hyperplasia without lower urinary tract symptoms; N43.3 Hydrocele, unspecified; Z87.891 Personal history of nicotine dependence; D72.89 Other specified disorders of white blood cells
CPT/HCPCS: 36415; 74177-TC; 76870-TC; 80048; 80053; 81003; 81015; 83605; 85025; 85610; 86850; 86900; 86901; 87040; 87086; 87186; 87491; 87591; 97116-GP; 97161-GP; 99284-25; G0378; J0131; J7030